=== PATIENT | female | born 1935 | race Caucasian/White ===

== ENCOUNTER 2021-07-14 08:06 | Day surgery (SDC) | payer MEDICARE ==
[~2021-07-14] VITALS: Ht 162.6 cm; Wt 60.6 kg
[2021-07-14] VITALS (11 sets, daily range): BP systolic 102–133; BP diastolic 47–92
[2021-07-14] MEDS ORDERED: normal saline 1000ml 1,000 ML IV SCH (08:50)
[2021-07-14] MEDS ORDERED: fentaNYL/PF 50MCG/1 ML 2ML syringe IV ONE (08:50)
[2021-07-14] MEDS ORDERED: MIDAZolam 1mg/ml 10ml vial IV ONE (08:50)
[2021-07-14] MEDS ORDERED: OMEG-79 PO (08:56)
[2021-07-14] MEDS ORDERED: CHOL200074 PO (08:56)
[2021-07-14] MEDS ORDERED: Tumeric PO (08:56)
[2021-07-14] MEDS ORDERED: CALCIUM PO (08:56)
[2021-07-14] MEDS ORDERED: APIX5TAB3 PO (08:56)
[2021-07-14] MEDS ORDERED: collagen PO (08:56)
[2021-07-14] MEDS ORDERED: MAG PO (08:56)
[2021-07-14] MEDS ORDERED: ROSU5TAB PO (08:56)
[2021-07-14] MEDS ORDERED: VITA1TAB37 PO (08:56)
[2021-07-14] MEDS ORDERED: [UNRECOGNIZED DRUG - CODE] PO (08:56)
[2021-07-14] MEDS ORDERED: SOLI10TA2 PO (08:56)
[2021-07-14] MEDS ORDERED: LYSI500T11 PO (08:56)
[2021-07-14] MEDS ORDERED: VITE400C PO (08:56)
[2021-07-14] MEDS ORDERED: AMIO200T61 PO (08:56)
[2021-07-14] MEDS ORDERED: ZINC PO (08:56)
[2021-07-14] MEDS ORDERED: CELE-193 PO (08:56)
[2021-07-14 09:19] LABS: BASOPHILS % (AUTO) 0.8 % (0-1); EOSINOPHILS # (AUTO) 0.1 X10'3 (0-0.9); EOSINOPHILS % (AUTO) 1.5 % (0-6); HEMOGLOBIN 14.9 g/dl (12.0-16.0); LYMPHOCYTES # (AUTO) 0.9 X10'3 (1.1-4.8); LYMPHOCYTES % (AUTO) 15.6 % (21-51); MEAN CORPUSCULAR HEMOGLOBIN 33.9 PG (27.0-31.0); MEAN CORPUSCULAR HGB CONC 33.9 g/dL (33.0-36.5); MEAN CORPUSCULAR VOLUME 100.1 FL (78-98); MEAN PLATELET VOLUME 7.3 FL (7.4-10.4); MONOCYTES # (AUTO) 0.6 X10'3 (0-0.9); NEUTROPHILS # (AUTO) 3.9 X10'3 (1.8-7.7); NEUTROPHILS % (AUTO) 71.1 % (42-75); PLATELET COUNT 389 X10'3 (140-440); RED CELL DISTRIBUTION WIDTH 13.1 % (11.5-14.5); WHITE BLOOD COUNT 5.5 X10'3 (4.5-11.0)
[2021-07-14 10:17] LABS: ALBUMIN 3.6 G/DL (3.4-5.0); ANION GAP 11 (8-16); BLOOD UREA NITROGEN 13 MG/DL (7-18); BUN/CREATININE RATIO 10.9 (6.6-38.0); CALCIUM 9.7 MG/DL (8.5-10.1); CHLORIDE 105 MMOL/L (99-107); CREATININE 1.19 MG/DL (0.40-0.90); GLUCOSE 89 MG/DL (70-104); MAGNESIUM 2.2 MG/DL (1.5-2.4); POTASSIUM 4.1 MMOL/L (3.5-5.1); SODIUM 143 MMOL/L (135-145); TOTAL CARBON DIOXIDE 26.8 MMOL/L (24-32); eGFR 43 ML/MIN
== END 2021-07-14 11:20 | disposition home or self-care (01) ==
LOC: SSTAY O 08:06
PROVIDERS: ATTEND Internal Medicine Cardiovascular Disease
DX: I48.4 Atypical atrial flutter (principal); I48.0 Paroxysmal atrial fibrillation; K21.9 Gastro-esophageal reflux disease without esophagitis; E78.5 Hyperlipidemia, unspecified; Z98.41 Cataract extraction status, right eye; Z98.42 Cataract extraction status, left eye; Z98.890 Other specified postprocedural states; Z96.651 Presence of right artificial knee joint; Z85.828 Personal history of other malignant neoplasm of skin; Z88.8 Allergy status to other drugs, medicaments and biological substances; Z88.5 Allergy status to narcotic agent; Z79.899 Other long term (current) drug therapy
CPT/HCPCS: 36415; 80048; 83735; 85025; 85610; 92960; 93005

== ENCOUNTER 2022-05-13 06:37 | Day surgery (SDC) | payer MEDICARE ==
[~2022-05-13] VITALS: Ht 162.6 cm; Wt 64.4 kg
[2022-05-13] VITALS (9 sets, daily range): BP systolic 100–121; BP diastolic 57–90
[~2022-05-13 06:37] MED LIST: APIX5TAB3 PO; CALCIUM PO; CELE-193 PO; CHOL200074 PO; FLEC50TA28 PO; LYSI500T11 PO; MAG PO; OMEG-79 PO; ROSU5TAB PO; SOLI10TA2 PO; Tumeric PO; VITA1TAB37 PO; VITE400C PO; ZINC PO; [UNRECOGNIZED DRUG - CODE] PO; collagen PO
[2022-05-13] MEDS ORDERED: fentaNYL/PF 50MCG/1 ML 2ML syringe IV ONE (06:55)
[2022-05-13] MEDS ORDERED: MIDAZolam 1mg/ml 10ml vial IV ONE (06:55)
[2022-05-13 07:39] LABS: BASOPHILS % (AUTO) 0.9 % (0-1); EOSINOPHILS # (AUTO) 0.1 X10'3 (0-0.9); EOSINOPHILS % (AUTO) 2.5 % (0-6); HEMATOCRIT 39.4 % (35.0-45.0); HEMOGLOBIN 13.5 g/dl (12.0-16.0); LYMPHOCYTES % (AUTO) 20.5 % (21-51); MEAN CORPUSCULAR HGB CONC 34.3 g/dL (33.0-36.5); MEAN CORPUSCULAR VOLUME 98.9 FL (78-98); MONOCYTES # (AUTO) 0.5 X10'3 (0-0.9); MONOCYTES % (AUTO) 9.5 % (2-12); NEUTROPHILS # (AUTO) 3.3 X10'3 (1.8-7.7); NEUTROPHILS % (AUTO) 66.6 % (42-75); PLATELET COUNT 194 X10'3 (140-440); RED BLOOD COUNT 3.98 X10'6 (4.20-5.60); RED CELL DISTRIBUTION WIDTH 13.4 % (11.5-14.5)
[2022-05-13] MEDS ORDERED: DRON400T7 PO (07:45)
[2022-05-13] MEDS ORDERED: CLARITIN (07:45)
[2022-05-13] MEDS ORDERED: FISH OIL (07:45)
[2022-05-13] MEDS ORDERED: COSAMIN (07:45)
[2022-05-13 07:52] LABS: ALBUMIN 3.5 G/DL (3.4-5.0); ANION GAP 7 (8-16); BLOOD UREA NITROGEN 16 MG/DL (7-18); BUN/CREATININE RATIO 15.1 (6.6-38.0); CALCIUM 9.2 MG/DL (8.5-10.1); CHLORIDE 106 MMOL/L (99-107); CREATININE 1.06 MG/DL (0.40-0.90); GLUCOSE 86 MG/DL (70-104); MAGNESIUM 1.9 MG/DL (1.5-2.4); POTASSIUM 4.1 MMOL/L (3.5-5.1); SODIUM 141 MMOL/L (135-145); TOTAL CARBON DIOXIDE 27.9 MMOL/L (24-32); eGFR 49 ML/MIN
--- NOTE | 2022-05-13 10:14 | NUR ---
Pt converts to NSR with pulse of 65. EKG obtained and MD notified.
== END 2022-05-13 10:25 | disposition home or self-care (01) ==
LOC: SSTAY O 06:37
PROVIDERS: ATTEND Internal Medicine Cardiovascular Disease
DX: I48.19 Other persistent atrial fibrillation (principal); I48.4 Atypical atrial flutter; Z79.899 Other long term (current) drug therapy
CPT/HCPCS: 36415; 80048; 83735; 85025; 85610; 92960; 93005; 94760; 94799; J2250; J3010; J7030; A4620